=== PATIENT | male | born 1950 | race Two or more races ===

== ENCOUNTER 2018-06-29 08:45 | Emergency (ER) | payer OTHER ==
[~2018-06-29] VITALS: Ht 167.6 cm; Wt 97.5 kg
[2018-06-29 09:03] VITALS: BP 128/83
[2018-06-29] MEDS ORDERED: INDOMETHACIN 25 MG CAP PO ONE (10:45)
== END 2018-06-29 12:31 | disposition home or self-care (01) ==
LOC: ER 08:45
DX: M10.9 Gout, unspecified (principal); J02.9 Acute pharyngitis, unspecified; Z90.89 Acquired absence of other organs
CPT/HCPCS: 73610

== ENCOUNTER 2019-11-02 09:50 | Emergency (ER) | payer MEDICARE, MEDICAID ==
[~2019-11-02] VITALS: Ht 167.6 cm; Wt 90.7 kg
[2019-11-02 11:23] VITALS: BP 134/77
== END 2019-11-02 11:35 | disposition home or self-care (01) ==
LOC: ER 09:50
DX: M10.072 Idiopathic gout, left ankle and foot (principal)